=== PATIENT | male | born 1975 | race Two or more races ===

== ENCOUNTER 2022-09-11 19:43 | Emergency (ER) | payer MEDICAID, OTHER ==
[~2022-09-11] VITALS: Ht 177.8 cm; Wt 100.0 kg
[2022-09-11 19:50] VITALS: PULSE 90; RESP 20; O2SAT 99
[2022-09-11] MEDS ORDERED: SODIUM CHLORIDE 0.9% 3,000 ML IV ONE (20:15)
[2022-09-11] MEDS ORDERED: LORazepam 2MG/ML-1ML VIAL IV PRN (20:15)
[2022-09-11] MEDS ORDERED: METOCLOPRAMIDE HCL 5MG/ml INJ 2ml VIAL IV ONE (20:15)
[2022-09-11] MEDS ORDERED: NOREPINEPHRINE 8 MG/250ML KIT 250 ML IV SCH (20:15)
[2022-09-11] MEDS ORDERED: ONDANSETRON HCL 4 MG/2 ML VIAL IV ONE (20:15)
[2022-09-11] MEDS ORDERED: PANTOPRAZOLE 80 MG in SODIUM CHL 0.9% 100 ML IV ONE (20:30)
[2022-09-11] MEDS ORDERED: PANTOPRAZOLE 40mg/50ML NS AE 50 ML IV ONE (20:30)
[2022-09-11] MEDS ORDERED: SODIUM CHLORIDE 0.9% 1,000 ML IV ONE (20:30)
[2022-09-11] MEDS ORDERED: IOHEXOL 300 MG/ML 100ML BOTTLE IJ ONE (20:59)
[2022-09-11 21:57] LABS: Basophils # (auto) 0 10 ^3/uL (0-0.2); Basophils % (auto) 0.4 % (0.0-2.0); Eosinophils # (auto) 0 10 ^3/uL (0-0.8); Lymphocytes # (auto) 0.6 10 ^3/uL (0.4-5.4); Monocytes # (auto) 0.2 10 ^3/uL (0-1.3); Neutrophils # (auto) 4.7 10 ^3/uL (1.6-8.6); Nucleated Red Blood Cells % 0.1 %
[2022-09-11 21:59] LABS: Eosinophils % (auto) 0.2 % (0.0-7.0); Hematocrit 23.7 % (41.0-53.0); Hemoglobin 8.1 g/dL (13.5-17.5); Lymphocytes % (auto) 10.6 % (10.0-50.0); Mean Corpuscular Hemoglobin 31.2 pg (28.0-32.0); Mean Corpuscular Hgb Conc. 34.1 g/dL (32.0-36.0); Mean Corpuscular Volume 91.6 fL (80.0-100.0); Neutrophils % (auto) 84.8 % (37.0-80.0); Red Blood Cells 2.59 10^6/uL (4.5-5.90); Red Cell Distribution Width 13.5 % (11.8-14.3); White Blood Cell 5.5 10^3/uL (4.4-10.8)
[2022-09-11 22:19] LABS: Anion Gap 9 (5-15); Blood Urea Nitrogen 44 mg/dL (7-18); Calcium 7.6 mg/dL (8.5-10.1); Carbon Dioxide 21 mmol/L (21-32); Chloride 112 mmol/L (98-107); Glucose 288 mg/dL (74-106); Potassium 4.2 mmol/L (3.5-5.1); Sodium 142 mmol/L (136-145)
[2022-09-11 22:21] LABS: Lactic Acid w/Reflex 3.5 mmol/L (0.4-2.0)
[2022-09-11 22:23] LABS: Alanine Aminotransferase 31 U/L (16-61); Alkaline Phosphatase 112 U/L (45-117); Aspartate Aminotransferase 21 U/L (15-37); BUN/Creatinine Ratio 47.3 (10.0-20.0); Bilirubin, Total 0.6 mg/dL (0.2-1.0); Blood Alcohol < 3.0 mg/dL (<10); GFR African American 112 mL/min; GFR Non-African American 93 mL/min; Total Protein 4.5 g/dL (6.4-8.2)
[2022-09-11 22:43] LABS: % Iron Saturation 59.1 % (20-55)
[2022-09-11 22:55] LABS: Ferritin 19.9 ng/mL (10-322)
[2022-09-11 22:59] LABS: Basophils # (auto) 0.1 10 ^3/uL (0-0.2); Eosinophils # (auto) 0 10 ^3/uL (0-0.8); Eosinophils % (auto) 0.2 % (0.0-7.0); Hemoglobin 9.2 g/dL (13.5-17.5); Lymphocytes # (auto) 0.5 10 ^3/uL (0.4-5.4); Lymphocytes % (auto) 4.8 % (10.0-50.0); Mean Corpuscular Hemoglobin 30.4 pg (28.0-32.0); Mean Corpuscular Volume 92.2 fL (80.0-100.0); Monocytes # (auto) 0.3 10 ^3/uL (0-1.3); Monocytes % (auto) 3.1 % (0.0-12.0); Neutrophils # (auto) 9.7 10 ^3/uL (1.6-8.6); Neutrophils % (auto) 90.9 % (37.0-80.0); Red Blood Cells 3.03 10^6/uL (4.5-5.90); Red Cell Distribution Width 13.6 % (11.8-14.3); White Blood Cell 10.7 10^3/uL (4.4-10.8)
[2022-09-12] VITALS (12 sets, daily range): BP systolic 93–118; BP diastolic 42–60; PULSE 84–94; RESP 21–25; TEMP 97.7–98.7; O2SAT 94
[2022-09-12 00:18] LABS: Base Excess -4.9 mmol/L (-2.0-2.0)
[2022-09-12 01:04] LABS: Lactic Acid w/Reflex 2.7 mmol/L (0.4-2.0)
== END 2022-09-12 08:09 | disposition short-term general hospital (02) ==
LOC: EDBD 19:43 → ER 19:43
DX: K92.2 Gastrointestinal hemorrhage, unspecified (principal); K92.0 Hematemesis; I95.9 Hypotension, unspecified; R57.8 Other shock; D64.9 Anemia, unspecified; R51.9 Headache, unspecified; E11.65 Type 2 diabetes mellitus with hyperglycemia
CPT/HCPCS: 36415; 36430; 36600; 71045; 74177; 80053; 80320; 82553; 82607; 82728; 82746; 82805; 83540; 83550; 83605; 83615; 83735; 83880; 84484; 85025; 85045; 85384; 86850; 86900; 86901; 86920; 87040; 93005; 96365; 96375; 99291; C9113; J2405; J2765; J7030; P9016; Q9967